=== PATIENT | female | born 1995 | race Hispanic/Latino ===

== ENCOUNTER 2020-06-03 06:14 | Inpatient (IN) | payer BC ==
[2020-06-02] MEDS: SODIUM CHLORIDE 0.9% 1000ML 1,000 ML IV SCH (22:00)
[~2020-06-03] VITALS: Ht 157.5 cm; Wt 81.6 kg
[2020-06-03] MEDS ORDERED: KETOROLAC TROMETHAMINE 30 MG/ML VIAL IV STA (07:13)
[2020-06-03] MEDS ORDERED: SODIUM CHLORIDE 0.9% 1000ML 1,000 ML IV SCH (07:15)
[2020-06-03] MEDS ORDERED: ONDANSETRON HCL INJ 2MG/ML 2ML 2 MG/ML VIAL IV STA (07:24)
[2020-06-03] MEDS ORDERED: FAMOTIDINE 20 MG/2 ML VIAL IV STA (07:24)
[2020-06-03] MEDS ORDERED: KETOROLAC TROMETHAMINE 30 MG/ML VIAL ONE (07:35)
[2020-06-03] MEDS ORDERED: SODIUM CHLORIDE 0.9% 1000ML 1,000 ML ONE (07:35)
[2020-06-03] MEDS ORDERED: FAMOTIDINE 20 MG/2 ML VIAL IV ONE (07:35)
[2020-06-03] MEDS ORDERED: ONDANSETRON HCL INJ 2MG/ML 2ML 2 MG/ML VIAL ONE (07:35)
[2020-06-03 09:55] LABS: BASOPHILS # (AUTO) 0.1 (0.0-0.1); BASOPHILS % 0.7 % (0.0-1.0); EOSINOPHILS # (AUTO) 0.1 (0.0-0.4); EOSINOPHILS % 1.4 % (0.0-6.0); HEMATOCRIT 38.6 % (34.2-44.1); HEMOGLOBIN 13.1 g/dL (12.0-16.0); LYMPHOCYTES # (AUTO) 2.4 (1.0-3.2); LYMPHOCYTES % 26.1 % (18.0-39.1); MEAN CORPUSCULAR HEMOGLOBIN 29.3 pg (28-32); MEAN CORPUSCULAR HGB CONC 33.9 g/dL (31-35); MEAN CORPUSCULAR VOLUME 86.4 fL (81-99); MONOCYTES # (AUTO) 0.4 (0.2-0.8); MONOCYTES % 4.1 % (4.4-11.3); NEUTROPHILS # (AUTO) 6.1 (2.1-6.9); NEUTROPHILS % 66.7 % (38.7-80.0); PLATELET COUNT 312 x10e3/uL (140-360); RED BLOOD COUNT 4.47 x10e6/uL (3.6-5.1); RED CELL DISTRIBUTION WIDTH 12.1 % (11.7-14.4)
[2020-06-03] MEDS ORDERED: PIPER-TAZ 3.375 GM / NS 50ML IV ONE (11:15)
[2020-06-03] MEDS ORDERED: ONDANSETRON HCL INJ 2MG/ML 2ML 2 MG/ML VIAL IV PRN (11:45)
[2020-06-03] MEDS ORDERED: PIPER-TAZ 3.375 GM / NS 50ML IV SCH (12:00)
[2020-06-03] MEDS ORDERED: PIPER-TAZ 3.375 GM 50 ML ONE (12:33)
[2020-06-03 13:20] VITALS: BP 135/92
[2020-06-03] MEDS: SODIUM CHLORIDE 0.9% 1000ML 1,000 ML IV SCH (13:30)
[2020-06-03] MEDS ORDERED: MIDAZOLAM HCL 2 MG/2 ML VIAL ONE (14:28)
[2020-06-03] MEDS ORDERED: FENTANYL CITRATE/PF 100MCG/2 ML INJ ONE (14:28)
[2020-06-03 14:48] VITALS: BP 130/72
[2020-06-03 14:54] VITALS: BP 130/72
[2020-06-03 16:01] LABS: AMYLASE 67 U/L (25-125); LIPASE 31 U/L (8-78)
[2020-06-03] MEDS ORDERED: PIPERACILLIN/TAZOBAC 3.375 GM VIAL ONE ×2 (16:17→23:19)
[2020-06-03 16:30] VITALS: BP 122/99
[2020-06-03] MEDS ORDERED: IOPAMIDOL 370 MG/ML 200 ML INFUS..BTL INJ ONE (16:38)
[2020-06-03] MEDS ORDERED: SODIUM CHLORIDE 0.9% 50ML 50 ML ONE ×2 (16:38→23:19)
[2020-06-03] MEDS: PIPERACILLIN/TAZOBAC 3.375 GM in SODIUM CHLORIDE 0.9% 50ML 50 ML IV SCH (17:20)
[2020-06-03 20:00] VITALS: BP 138/96
[2020-06-03 23:48] VITALS: BP 138/96
[2020-06-04] VITALS (8 sets, daily range): BP systolic 107–130; BP diastolic 70–87
[2020-06-04] MEDS: SODIUM CHLORIDE 0.9% 1000ML 1,000 ML IV SCH ×3 (02:43→21:10)
[2020-06-04] MEDS ORDERED: PIPERACILLIN/TAZOBAC 3.375 GM VIAL ONE ×4 (03:40→21:05)
[2020-06-04] MEDS ORDERED: SODIUM CHLORIDE 0.9% 50ML 50 ML ONE ×4 (03:41→21:06)
[2020-06-04] MEDS: PIPERACILLIN/TAZOBAC 3.375 GM in SODIUM CHLORIDE 0.9% 50ML 50 ML IV SCH ×6 (06:00→23:38)
[2020-06-04 06:49] LABS: BASOPHILS % 0.5 % (0.0-1.0); EOSINOPHILS # (AUTO) 0.2 (0.0-0.4); EOSINOPHILS % 1.9 % (0.0-6.0); HEMATOCRIT 34.3 % (34.2-44.1); HEMOGLOBIN 11.6 g/dL (12.0-16.0); LYMPHOCYTES # (AUTO) 2.5 (1.0-3.2); LYMPHOCYTES % 29.8 % (18.0-39.1); MEAN CORPUSCULAR HEMOGLOBIN 29.1 pg (28-32); MEAN CORPUSCULAR HGB CONC 33.8 g/dL (31-35); MEAN CORPUSCULAR VOLUME 86.2 fL (81-99); MONOCYTES # (AUTO) 0.5 (0.2-0.8); MONOCYTES % 5.8 % (4.4-11.3); NEUTROPHILS # (AUTO) 5.1 (2.1-6.9); NEUTROPHILS % 61.4 % (38.7-80.0); PLATELET COUNT 276 x10e3/uL (140-360); RED BLOOD COUNT 3.98 x10e6/uL (3.6-5.1); RED CELL DISTRIBUTION WIDTH 12.1 % (11.7-14.4)
[2020-06-04 07:08] LABS: INR 0.94; PARTIAL THROMBOPLASTIN TIME 30.1 seconds (23.8-35.5); PROTHROMBIN TIME 13.2 seconds (11.9-14.5)
[2020-06-04 07:10] LABS: ALANINE AMINOTRANSFERASE 21 IU/L (0-55); ALBUMIN 3.4 g/dL (3.5-5.0); ALBUMIN/GLOBULIN RATIO 0.9 (0.8-2.0); ALKALINE PHOSPHATASE 82 IU/L (40-150); BLOOD UREA NITROGEN 11 mg/dL (7-26); BUN/CREATININE RATIO 14 (6-25); CALCIUM 8.3 mg/dL (8.4-10.2); CARBON DIOXIDE 20 mmol/L (22-29); CHLORIDE 109 mmol/L (98-107); CREATININE, SERUM 0.77 mg/dL (0.57-1.11); EST GLOMERULAR FILTRATION RATE > 60 ML/MIN (60-); GLUCOSE 122 mg/dL (74-118); SODIUM 138 mmol/L (136-145)
[2020-06-04] MEDS ORDERED: BUPIVACAINE 0.25% 30ML SDV ONE (12:25)
[2020-06-04] MEDS ORDERED: HYDROCODONE/APAP 7.5MG-325MG 1 EA TAB PO PRN (14:15)
[2020-06-04] MEDS ORDERED: LIDOCAINE HCL 2% LOCAL INJ 5 ML SDV VIAL INJ ONE (17:35)
[2020-06-04] MEDS ORDERED: ATROPINE SULFATE 1 MG/ML VIAL ONE (17:35)
[2020-06-04] MEDS ORDERED: SEVOFLURANE INHAL SOLN 250 ML PEN BTL ONE (17:35)
[2020-06-04] MEDS ORDERED: PROPOFOL IV EMULSION 10 MG/ML 20 ML VIAL ONE (17:35)
[2020-06-04] MEDS ORDERED: DEXAMETHASONE SOD PHOS INJ 4 MG/ML VIAL ONE (17:35)
[2020-06-04] MEDS ORDERED: NEOSTIGMINE 1 MG/ML 10ML VIAL ONE (17:35)
[2020-06-04] MEDS ORDERED: ONDANSETRON HCL INJ 2MG/ML 2ML 2 MG/ML VIAL ONE (17:35)
[2020-06-04] MEDS: HYDROMORPHONE 1MG/1ML INJ IV PRN ×2 (17:41→21:30)
[2020-06-05] VITALS: BP 122/74
[2020-06-05 04:00] VITALS: BP 108/75
[2020-06-05] MEDS ORDERED: PIPERACILLIN/TAZOBAC 3.375 GM VIAL ONE ×2 (04:41→11:45)
[2020-06-05] MEDS ORDERED: SODIUM CHLORIDE 0.9% 50ML 50 ML ONE ×2 (04:43→11:45)
[2020-06-05 05:51] LABS: BASOPHILS % 0.2 % (0.0-1.0); EOSINOPHILS % 0.1 % (0.0-6.0); HEMATOCRIT 32.3 % (34.2-44.1); HEMOGLOBIN 10.7 g/dL (12.0-16.0); LYMPHOCYTES # (AUTO) 1.9 (1.0-3.2); LYMPHOCYTES % 14.2 % (18.0-39.1); MEAN CORPUSCULAR HGB CONC 33.1 g/dL (31-35); MEAN CORPUSCULAR VOLUME 87.5 fL (81-99); MONOCYTES # (AUTO) 0.5 (0.2-0.8); MONOCYTES % 3.9 % (4.4-11.3); NEUTROPHILS # (AUTO) 10.8 (2.1-6.9); PLATELET COUNT 286 x10e3/uL (140-360); RED BLOOD COUNT 3.69 x10e6/uL (3.6-5.1); RED CELL DISTRIBUTION WIDTH 12.1 % (11.7-14.4)
[2020-06-05] MEDS: PIPERACILLIN/TAZOBAC 3.375 GM in SODIUM CHLORIDE 0.9% 50ML 50 ML IV SCH ×2 (06:07→12:21)
[2020-06-05] MEDS: SODIUM CHLORIDE 0.9% 1000ML 1,000 ML IV SCH (06:07)
[2020-06-05 06:12] LABS: ALANINE AMINOTRANSFERASE 41 IU/L (0-55); ALBUMIN 3.2 g/dL (3.5-5.0); ALBUMIN/GLOBULIN RATIO 0.9 (0.8-2.0); ALKALINE PHOSPHATASE 73 IU/L (40-150); BLOOD UREA NITROGEN 9 mg/dL (7-26); BUN/CREATININE RATIO 13 (6-25); CARBON DIOXIDE 23 mmol/L (22-29); CHLORIDE 109 mmol/L (98-107); EST GLOMERULAR FILTRATION RATE > 60 ML/MIN (60-); GLUCOSE 112 mg/dL (74-118); SODIUM 141 mmol/L (136-145)
[2020-06-05 08:41] VITALS: BP 108/75
[2020-06-05 08:45] VITALS: BP 135/94
[2020-06-05 12:10] VITALS: BP 109/74
[2020-06-05] MEDS ORDERED: TYLENOL # 31 EA PO ×3 (13:00→13:05)
[2020-06-05] MEDS ORDERED: KEFLEX125 MG/5 M PO (13:14)
== END 2020-06-05 13:54 | disposition home or self-care (01) | DRG 419 ==
LOC: FSED 06:32 → ERHOLD 11:35 → MED/SURG2 13:37
PROVIDERS: ADMIT Internal Medicine; ATTEND Internal Medicine
PROC: 0FT44ZZ Resection of Gallbladder, Percutaneous Endoscopic Approach (ICD-10-PCS; principal; 2020-06-04 13:30)
DX: K80.12 Calculus of gallbladder with acute and chronic cholecystitis without obstruction (principal); K76.0 Fatty (change of) liver, not elsewhere classified; E66.9 Obesity, unspecified; Z68.32 Body mass index [BMI] 32.0-32.9, adult; Z20.822 Contact with and (suspected) exposure to COVID-19
CPT/HCPCS: 36415; 74177; 76705; 80048; 80053; 80076; 81003; 81025; 82150; 82553; 83690; 84484; 85025; 85610; 85730; 88304; 96361; 96374; 96375; 96376; 99284; C1766; J0461; J1100; J1170; J1885; J2001; J2250; J2405; J2543; J2710; J3010; J7030; Q9967; U0002

== ENCOUNTER 2020-06-17 21:18 | Emergency (ER) | payer BC ==
[~2020-06-17] VITALS: Ht 157.5 cm; Wt 84.8 kg
[~2020-06-17 21:18] MED LIST: KEFLEX125 MG/5 M PO; TYLENOL # 31 EA PO
[2020-06-17 23:30] VITALS: BP 140/87
== END 2020-06-17 23:30 | disposition home or self-care (01) ==
LOC: FSED 23:03
DX: M54.5 Low back pain (principal)
CPT/HCPCS: 81003; 81025; 99282